=== PATIENT | female | born 1995 | race Caucasian/White ===

== ENCOUNTER 2019-04-08 22:31 | Observation (INO) | payer MEDICAID ==
[2019-04-08] MEDS ORDERED: Ondansetron 4 MG/2 ML SDV IVPUSH ONE (23:08)
[2019-04-09 00:01] LABS: BLOOD UREA NITROGEN,BUN 10 mg/dL (7.0-18.0); CARBON DIOXIDE,CO2 24.6 mmol/L (21.0-32.0); CHLORIDE,CL 103 mmol/L (98-107); GLUCOSE RANDOM 117 mg/dL (74-106); LIPASE 96 U/L (73-393); POTASSIUM,K 3.5 mmol/L (3.5-5.1); SODIUM,NA 139 mmol/L (136-145)
[2019-04-09] MEDS ORDERED: Morphine 4 MG/ML Syringe IVPUSH ONE (01:43)
[2019-04-09] MEDS ORDERED: Iopamidol 755 Mg/ML 100 ML Bottle IVPUSH ONE (02:21)
--- NOTE | 2019-04-09 02:59 | CT ---
CLINICAL INFORMATION: 24-year-old with abdominal pain and leukocytosis. TECHNIQUE: Contrast-enhanced CT of the abdomen and pelvis was obtained. Coronal and sagittal reformatted images were obtained. Contrast: 100 mL of Isovue 370 intravenous contrast was injected uneventfully prior to image acquisition. Radiation Dose Estimate (Total Exam DLP): 541.8 mGy-cm. COMPARISON: None available. FINDINGS: Lower Chest: Lung bases: Unremarkable. Heart/Pericardium: Unremarkable. Abdomen/Pelvis: Liver: Unremarkable. Gallbladder: Unremarkable. Spleen: Unremarkable. Adrenal glands: Unremarkable. Kidneys: Unremarkable. Pancreas: Unremarkable. Lymph nodes: Mildly prominent mesenteric lymph nodes most pronounced in the right lower quadrant, reactive in nature. Bowel: Fluid filled dilated thick-walled appendix measuring up to 1 cm with periappendiceal fat stranding consistent with acute appendicitis. No evidence for perforation or abscess. Mildly prominent diffuse small bowel distention likely representing an ileus. Urinary bladder: Grossly unremarkable. Reproductive structures: Unremarkable for patient age. 1.3 cm nabothian cyst. Ovaries demonstrate normal appearing follicles. No abdominal/pelvis ascites or free intraperitoneal air. Musculoskeletal: : Visualized osseous structures are preserved. IMPRESSION: 1. Fluid-filled, dilated, thick-walled appendix measuring up to 1 cm in the right lower quadrant with surrounding fat stranding consistent with acute appendicitis. No evidence for perforation or abscess. 2. Mildly prominent small bowel loops likely reflecting a reactive ileus. Please note that all CT scans at this facility use dose modulation, iterative reconstruction, and/or weight-based dosing when appropriate to reduce radiation dose to as low as reasonably achievable. Dictated by Andre Mckeon MD @ Apr 09 2019 11:59AM Signed by Dr. Andre Mckeon @ Apr 09 2019 12:05PM
[2019-04-09] MEDS ORDERED: Piperacillin/Tazobactam 3.375 GM in Sodium Chloride 0.9% 50 ML IV ONE (03:46)
[2019-04-09] MEDS ORDERED: Nicotine 14 MG/24 Hr Patch TRDERM ONE (03:57)
[2019-04-09] MEDS ORDERED: Sodium Chloride 0.9% 1,000 ML IV SCH (04:15)
--- NOTE | 2019-04-09 04:28 | EDM.PDOC ---
ED HPI GENERAL MEDICAL PROBLEM - General Chief Complaint: Abdominal Pain Stated Complaint: ABDOMINAL PAIN Time Seen by Provider: 04/08/19 23:04 Source of Information: Reports: Patient - History of Present Illness INITIAL COMMENTS - FREE TEXT/NARRATIVE: Pt with no reported pmh presents with 1 day of abdominal pain begining higher and moving lower. Pt began vomiting tonight and presents to the ed. No fever or any other symptoms. Upper Abdomen Pain Score (Numeric/FACES): 9 - Related Data Allergies Allergy/AdvReac Type Severity Reaction Status Date / Time No Known Allergies Allergy Verified 04/08/19 22:55 Home Meds: Home Meds . 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: None Musculoskeletal History: Reports: None Neurological History: Reports: Head Trauma Psychiatric History: Reports: Depression, PTSD Endocrine/Metabolic History: Reports: None Hematologic History: Reports: None Immunologic History: Reports: None Oncologic (Cancer) History: Reports: None Dermatologic History: Reports: None - Infectious Disease History Infectious Disease History: Reports: Chicken Pox - Past Surgical History Head Surgeries/Procedures: Reports: None HEENT Surgical History: Reports: Tonsillectomy Social & Family History - Tobacco Use Smoking Status *Q: Current Every Day Smoker Years of Tobacco use: 7 Packs/Tins Daily: 0.5 - Recreational Drug Use Recreational Drug Use: Yes Drug Use in Last 12 Months: Yes Recreational Drug Type: Reports: Marijuana/Hashish Recreational Drug Use Frequency: Daily ED ROS GENERAL - Review of Systems Review Of Systems: See Below Constitutional: Reports: No Symptoms HEENT: Reports: No Symptoms Respiratory: Reports: No Symptoms Cardiovascular: Reports: No Symptoms GI/Abdominal: Reports: Abdominal Pain, Anorexia, Nausea, Vomiting : Reports: No Symptoms Skin: Reports: No Symptoms ED EXAM, GI/ABD - Physical Exam Exam: See Below General Appearance: Alert, No Apparent Distress Head: Atraumatic, Normocephalic Neck: Normal Inspection Respiratory/Chest: Lungs Clear, Normal Breath Sounds Cardiovascular: Regular Rate, Rhythm, No Murmur GI/Abdominal Exam: Soft, No Distention, Rebound, Tender. No: Guarding, Rigid Back Exam: Normal Inspection Extremities: Normal Inspection Neurological: Alert, Oriented, Normal Cognition Skin Exam: Warm, Dry, Intact Course - Vital Signs Last Recorded V/S: Last Vital Signs Temp 97.9 F 04/09/19 03:52 Pulse 76 04/09/19 03:52 Resp 16 04/09/19 03:52 BP 111/62 04/09/19 03:52 Pulse Ox 97 04/09/19 03:52 - Orders/Labs/Meds Orders: Active Orders 24 hr Category Date Time Status Admission Status [Patient Status] [ADT] Stat ADT 04/09/19 04:06 Active Antiembolic Devices [RC] PER UNIT ROUTINE Care 04/09/19 04:09 Active NPO [Nothing Per Oral Diet] [DIET] Diet 04/09/19 Breakfast Active CULTURE BLOOD [BC] Stat Lab 04/09/19 03:46 Ordered CULTURE BLOOD [BC] Stat Lab 04/09/19 03:50 Received HYDROmorphone [Dilaudid] Med 04/09/19 04:07 Active 0.5 mg IVPUSH Q1H PRN Lactated Ringers [Ringers, Lactated] 1,000 ml Med 04/09/19 04:15 Active IV ASDIRECTED Ondansetron [Zofran] Med 04/09/19 04:08 Active 4 mg IVPUSH Q6H PRN Piperacillin/Tazobactam [Piperacil-Tazobact] 3.375 gm Med 04/09/19 06:15 Active Sodium Chloride 0.9% [Normal Saline] 50 ml IV Q6H Sodium Chloride 0.9% [Normal Saline] 1,000 ml Med 04/09/19 04:15 Active IV ASDIRECTED Blood Culture x2 Reflex Set [OM.PC] Stat Oth 04/09/19 03:46 Ordered SCD [Sequential Compression Device] [OM.PC] Stat Oth 04/09/19 04:09 Ordered Code Status [Resuscitation Status] Routine Resus Stat 04/09/19 04:20 Ordered Medication Orders Hydromorphone HCl (Dilaudid) 0.5 mg IVPUSH Q1H PRN PRN Reason: Pain (severe 7-10) Lactated Ringer's (Ringers, Lactated) 1,000 mls @ 125 mls/hr IV ASDIRECTED SHAYLA Piperacillin Sod/Tazobactam (Sod 3.375 gm/ Sodium Chloride) 50 mls @ 100 mls/ hr IV Q6H [facility] Sodium Chloride (Normal Saline) 1,000 mls @ 999 mls/hr IV ASDIRECTED [facility] Last Admin: 04/09/19 04:12 Dose: 999 mls/hr Ondansetron HCl (Zofran) 4 mg IVPUSH Q6H PRN PRN Reason: Nausea/Vomiting Labs: Laboratory Tests 04/08/19 04/08/19 04/08/19 Range/Units 23:25 23:25 23:26 WBC 18.64 H (4.0-11.0) K/uL RBC 4.37 (4.30-5.90) M/uL Hgb 13.8 (12.0-16.0) g/dL Hct 39.5 (36.0-46.0) % MCV 90.4 (80.0-98.0) fL MCH 31.6 (27.0-32.0) pg MCHC 34.9 (31.0-37.0) g/dL RDW Std Deviation 42.7 (28.0-62.0) fl RDW Coeff of Natalie 13 (11.0-15.0) % Plt Count 211 (150-400) K/uL MPV 11.10 (7.40-12.00) fL Neut % (Auto) 74.1 (48.0-80.0) % Lymph % (Auto) 18.7 (16.0-40.0) % [place] % (Auto) 6.4 (0.0-15.0) % Eos % (Auto) 0.6 (0.0-7.0) % Baso % (Auto) 0.2 (0.0-1.5) % Neut # (Auto) 13.8 H (1.4-5.7) K/uL Lymph # (Auto) 3.5 H (0.6-2.4) K/uL [place] # (Auto) 1.2 H (0.0-0.8) K/uL Eos # (Auto) 0.1 (0.0-0.7) K/uL Baso # (Auto) 0.0 (0.0-0.1) K/uL Nucleated RBC % 0.0 /100WBC Nucleated RBCs # 0 K/uL Sodium (136-145) mmol/L Potassium (3.5-5.1) mmol/L Chloride (98-107) mmol/L Carbon Dioxide (21.0-32.0) mmol/L BUN (7.0-18.0) mg/dL Creatinine (0.6-1.0) mg/dL Est Cr Clr Drug Dosing mL/min Estimated GFR (MDRD) ml/min Glucose (74-106) mg/dL Calcium (8.5-10.1) mg/dL Total Bilirubin (0.2-1.0) mg/dL AST (15-37) IU/L ALT (14-63) IU/L Alkaline Phosphatase (46-116) U/L Total Protein (6.4-8.2) g/dL Albumin (3.4-5.0) g/dL Globulin (2.6-4.0) g/dL Albumin/Globulin Ratio (0.9-1.6) Lipase (73-393) U/L Urine Color YELLOW Urine Appearance CLEAR Urine pH 6.0 (5.0-8.0) Ur Specific [place] 1.020 (1.001-1.035) Urine Protein NEGATIVE (NEGATIVE) mg/dL Urine Glucose (UA) NEGATIVE (NEGATIVE) mg/dL Urine Ketones 40 H (NEGATIVE) mg/dL Urine Occult Blood NEGATIVE (NEGATIVE) Urine Nitrite NEGATIVE (NEGATIVE) Urine Bilirubin NEGATIVE (NEGATIVE) Urine Urobilinogen 0.2 (<2.0) EU/dL Ur Leukocyte Esterase SMALL H (NEGATIVE) Urine RBC 0-1 (0-2/HPF) Urine WBC 1-2 (0-5/HPF) Ur Epithelial Cells OCCASIONAL (NONE-FEW) Urine Bacteria RARE (NEGATIVE) Urine HCG, Qual NEGATIVE (NEGATIVE) 04/08/19 Range/Units 23:26 WBC (4.0-11.0) K/uL RBC (4.30-5.90) M/uL Hgb (12.0-16.0) g/dL Hct (36.0-46.0) % MCV (80.0-98.0) fL MCH (27.0-32.0) pg MCHC (31.0-37.0) g/dL RDW Std Deviation (28.0-62.0) fl RDW Coeff of [place] (11.0-15.0) % Plt Count (150-400) K/uL MPV (7.40-12.00) fL Neut % (Auto) (48.0-80.0) % Lymph % (Auto) (16.0-40.0) % [place] % (Auto) (0.0-15.0) % Eos % (Auto) (0.0-7.0) % Baso % (Auto) (0.0-1.5) % Neut # (Auto) (1.4-5.7) K/uL Lymph # (Auto) (0.6-2.4) K/uL [place] # (Auto) (0.0-0.8) K/uL Eos # (Auto) (0.0-0.7) K/uL Baso # (Auto) (0.0-0.1) K/uL Nucleated RBC % /100WBC Nucleated RBCs # K/uL Sodium 139 (136-145) mmol/L Potassium 3.5 (3.5-5.1) mmol/L Chloride 103 (98-107) mmol/L Carbon Dioxide 24.6 (21.0-32.0) mmol/L BUN 10 (7.0-18.0) mg/dL Creatinine 0.7 (0.6-1.0) mg/dL Est Cr Clr Drug Dosing 97.17 mL/min Estimated GFR (MDRD) > 60.0 ml/min Glucose 117 H (74-106) mg/dL Calcium 9.5 (8.5-10.1) mg/dL Total Bilirubin 0.3 (0.2-1.0) mg/dL AST 13 L (15-37) IU/L ALT 24 (14-63) IU/L Alkaline Phosphatase 25 L (46-116) U/L Total Protein 7.3 (6.4-8.2) g/dL Albumin 4.0 (3.4-5.0) g/dL Globulin 3.3 (2.6-4.0) g/dL Albumin/Globulin Ratio 1.2 (0.9-1.6) Lipase 96 (73-393) U/L Urine Color Urine Appearance Urine pH (5.0-8.0) Ur Specific [place] (1.001-1.035) Urine Protein (NEGATIVE) mg/dL Urine Glucose (UA) (NEGATIVE) mg/dL Urine Ketones (NEGATIVE) mg/dL Urine Occult Blood (NEGATIVE) Urine Nitrite (NEGATIVE) Urine Bilirubin (NEGATIVE) Urine Urobilinogen (<2.0) EU/dL Ur Leukocyte Esterase (NEGATIVE) Urine RBC (0-2/HPF) Urine WBC (0-5/HPF) Ur Epithelial Cells (NONE-FEW) Urine Bacteria (NEGATIVE) Urine HCG, Qual (NEGATIVE) Meds: Medications Generic Name Dose Route Start Last Admin Trade Name Matty PRN Reason Stop Dose Admin Hydromorphone HCl 0.5 mg 04/09/19 04:07 Dilaudid IVPUSH Q1H PRN Pain (severe 7-10) Lactated Ringer's 1,000 mls @ 125 mls/hr 04/09/19 04:15 Ringers, Lactated IV ASDIRECTED SHAYLA Piperacillin Sod/Tazobactam 50 mls @ 100 mls/hr 04/09/19 06:15 Sod 3.375 gm/ Sodium Chloride IV Q6H SHAYLA Sodium Chloride 1,000 mls @ 999 mls/hr 04/09/19 04:15 04/09/19 04:12 Normal Saline IV 999 mls/hr ASDIRECTED SHAYLA Administration Ondansetron HCl 4 mg 04/09/19 04:08 Zofran IVPUSH Q6H PRN Nausea/Vomiting Discontinued Medications Generic Name Dose Route Start Last Admin Trade Name [place] PRN Reason Stop Dose Admin Piperacillin Sod/Tazobactam 50 mls @ 100 mls/hr 04/09/19 03:46 04/09/19 04:14 Sod 3.375 gm/ Sodium Chloride IV 04/09/19 04:15 100 mls/hr ONETIME ONE Administration Iopamidol 100 ml 04/09/19 02:21 04/09/19 02:22 Isovue-370 (76%) IVPUSH 04/09/19 02:22 100 ml ONETIME ONE Administration Morphine Sulfate 4 mg 04/09/19 01:43 04/09/19 01:58 Morphine IVPUSH 04/09/19 01:44 4 mg ONETIME ONE Administration Nicotine 14 mg 04/09/19 03:57 04/09/19 04:19 Habitrol TRDERM 04/09/19 03:58 14 mg ONETIME ONE Administration Ondansetron HCl 4 mg 04/08/19 23:08 04/08/19 23:33 Zofran IVPUSH 04/08/19 23:09 4 mg ONETIME ONE Administration - Re-Assessments/Exams Free Text/Narrative Re-Assessment/Exam: 04/09/19 04:27 CT shows Acute uncomplicated Appendicitis. Dr. Alba called and pt admitted and given zosyn. Assessment and plan discussed with patient. Departure - Departure Time of Disposition: 04:28 Disposition: Refer to Observation Condition: Good Clinical Impression: Appendicitis - Discharge Information *PRESCRIPTION DRUG MONITORING PROGRAM REVIEWED*: Not Applicable *COPY OF PRESCRIPTION DRUG MONITORING REPORT IN PATIENT PRABHA: Not Applicable Sepsis Event Note - Evaluation Sepsis Screening Result: No Definite Risk - Focused Exam Vital Signs: Vital Signs Temp Pulse Resp BP Pulse Ox 04/09/19 03:52 97.9 F 76 16 111/62 97 04/09/19 01:30 67 16 120/75 97 04/08/19 22:52 97.9 F 90 18 126/74 98 Date Exam was Performed: 04/09/19 Time Exam was Performed: 04:23 - My Orders Last 24 Hours: My Active Orders 04/09/19 03:46 CULTURE BLOOD [BC] Stat Blood Culture x2 Reflex Set [OM.PC] Stat 04/09/19 03:50 CULTURE BLOOD [BC] Stat 04/09/19 04:06 Admission Status [Patient Status] [ADT] Stat 04/09/19 04:15 Sodium Chloride 0.9% [Normal Saline] 1,000 ml IV ASDIRECTED - Assessment/Plan Last 24 Hours: My Active Orders 04/09/19 03:46 CULTURE BLOOD [BC] Stat Blood Culture x2 Reflex Set [OM.PC] Stat 04/09/19 03:50 CULTURE BLOOD [BC] Stat 04/09/19 04:06 Admission Status [Patient Status] [ADT] Stat 04/09/19 04:15 Sodium Chloride 0.9% [Normal Saline] 1,000 ml IV ASDIRECTED
[2019-04-09] MEDS: HYDROmorphone 2 MG/ML Syringe IVPUSH PRN ×4 (04:57→21:17)
[2019-04-09] MEDS: Lactated Ringers 1,000 ML IV SCH ×2 (04:57→18:40)
[2019-04-09] MEDS: Piperacillin/Tazobactam 3.375 GM in Sodium Chloride 0.9% 50 ML IV SCH ×3 (05:18→19:17)
--- NOTE | 2019-04-09 07:52 | PCM.PREANE ---
Preanesthetic Assessment - Anesthesia/Transfusion/Family Hx Anesthesia History: Prior Anesthesia Without Reaction Family History of Anesthesia Reaction: No - Physical Assessment NPO Status Date: 04/09/19 NPO Status Time: 00:05 Vital Signs: Last Vital Signs Temp 36.6 C 04/09/19 03:52 Pulse 76 04/09/19 03:52 Resp 16 04/09/19 03:52 BP 111/62 04/09/19 03:52 Pulse Ox 97 04/09/19 03:52 Height: 1.57 m Weight: 79.742 kg ASA Class: 1 - Lab Values: Laboratory Last Values WBC 18.64 K/uL (4.0-11.0) H 04/08/19 23: RBC 4.37 M/uL (4.30-5.90) 04/08/19 23: Hgb 13.8 g/dL (12.0-16.0) 04/08/19: Hct 39.5 % (36.0-46.0) 04/08/19: MCV 90.4 fL (80.0-98.0) 04/08/19: MCH 31.6 pg (27.0-32.0) 04/08/19: MCHC 34.9 g/dL (31.0-37.0) 04/08/19: RDW Std Deviation 42.7 fl (28.0-62.0) 04/08/19: RDW Coeff of Natalie 13 % (11.0-15.0) 04/08/19: Plt Count 211 K/uL (150-400) 04/08/19: MPV 11.10 fL (7.40-12.00) 04/08/19: Neut % (Auto) 74.1 % (48.0-80.0) 04/08/19: Lymph % (Auto) 18.7 % (16.0-40.0) 04/08/19: [place] % (Auto) 6.4 % (0.0-15.0) 04/08/19: Eos % (Auto) 0.6 % (0.0-7.0) 04/08/19: Baso % (Auto) 0.2 % (0.0-1.5) 04/08/19 23: Neut # (Auto) 13.8 K/uL (1.4-5.7) H 04/08/19 23: Lymph # (Auto) 3.5 K/uL (0.6-2.4) H 04/08/19 23: [place] # (Auto) 1.2 K/uL (0.0-0.8) H 04/08/19 23: Eos # (Auto) 0.1 K/uL (0.0-0.7) 04/08/19 23: Baso # (Auto) 0.0 K/uL (0.0-0.1) 04/08/19 23: Nucleated RBC % 0.0 /100WBC 04/08/19: Nucleated RBCs # 0 K/uL 04/08/19 23: Sodium 139 mmol/L (136-145) 04/08/19 23: Potassium 3.5 mmol/L (3.5-5.1) 04/08/19: Chloride 103 mmol/L (98-107) 04/08/19: Carbon Dioxide 24.6 mmol/L (21.0-32.0) 04/08/19: BUN 10 mg/dL (7.0-18.0) 04/08/19: Creatinine 0.7 mg/dL (0.6-1.0) 04/08/19: Est Cr Clr Drug Dosing 97.17 mL/min 04/08/19 23: Estimated GFR (MDRD) > 60.0 ml/min 04/08/19: Glucose 117 mg/dL (74-106) H 04/08/19: Calcium 9.5 mg/dL (8.5-10.1) 04/08/19: Total Bilirubin 0.3 mg/dL (0.2-1.0) 04/08/19: AST 13 IU/L (15-37) L 04/08/19: ALT 24 IU/L (14-63) 04/08/19: Alkaline Phosphatase 25 U/L (46-116) L 04/08/19: Total Protein 7.3 g/dL (6.4-8.2) 04/08/19 23: Albumin 4.0 g/dL (3.4-5.0) 04/08/19 23: Globulin 3.3 g/dL (2.6-4.0) 04/08/19 23: Albumin/Globulin Ratio 1.2 (0.9-1.6) 04/08/19 23: Lipase 96 U/L (73-393) 04/08/19 23: Urine Color YELLOW 04/08/19 23: Urine Appearance CLEAR 04/08/19 23: Urine pH 6.0 (5.0-8.0) 04/08/19 23:25 Ur Specific [place] 1.020 (1.001-1.035) 04/08/19 23: Urine Protein NEGATIVE mg/dL (NEGATIVE) 04/08/19 23: Urine Glucose (UA) NEGATIVE mg/dL (NEGATIVE) 04/08/19 23: Urine Ketones 40 mg/dL (NEGATIVE) H 04/08/19 23:25 Urine Occult Blood NEGATIVE (NEGATIVE) 04/08/19 23:25 Urine Nitrite NEGATIVE (NEGATIVE) 04/08/19 23: Urine Bilirubin NEGATIVE (NEGATIVE) 04/08/19 23: Urine Urobilinogen 0.2 EU/dL (<2.0) 04/08/19 23:25 Ur Leukocyte Esterase SMALL (NEGATIVE) H 04/08/19 23:25 Urine RBC 0-1 (0-2/HPF) 04/08/19 23:25 Urine WBC 1-2 (0-5/HPF) 04/08/19 23:25 Ur Epithelial Cells OCCASIONAL (NONE-FEW) 04/08/19 23:25 Urine Bacteria RARE (NEGATIVE) 04/08/19 23: Urine HCG, Qual NEGATIVE (NEGATIVE) 04/08/19 23:25 - Allergies Allergies/Adverse Reactions: Allergies Allergy/AdvReac Type Severity Reaction Status Date / Time No Known Allergies Allergy Verified 04/09/19 05:27 - Acknowledgements Anesthesia Type Planned: General Anesthesia Pt an Appropriate Candidate for the Planned Anesthesia: Yes Alternatives and Risks of Anesthesia Discussed w Pt/Guardian: Yes Pt/Guardian Understands and Agrees with Anesthesia Plan: Yes PreAnesthesia Questionnaire HEENT History: Reports: None Cardiovascular History: Reports: None Respiratory History: Reports: None Gastrointestinal History: Reports: None Genitourinary History: Reports: None 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 Musculoskeletal History: Reports: None Neurological History: Reports: Head Trauma Psychiatric History: Reports: Depression, PTSD Endocrine/Metabolic History: Reports: None Hematologic History: Reports: None Immunologic History: Reports: None Oncologic (Cancer) History: Reports: None Dermatologic History: Reports: None - Infectious Disease History Infectious Disease History: Reports: Chicken Pox - Past Surgical History Head Surgeries/Procedures: Reports: None HEENT Surgical History: Reports: Tonsillectomy - SUBSTANCE USE Smoking Status *Q: Current Every Day Smoker Recreational Drug Use History: Yes Recreational Drug Type: Reports: Marijuana/Hashish - HOME MEDS Home Medications: Home Meds . [No Known Home Meds] 04/08/19 [History] - CURRENT (IN HOUSE) MEDS Current Meds: Current Medications Hydromorphone HCl (Dilaudid) 0.5 mg IVPUSH Q1H PRN PRN Reason: Pain (severe 7-10) Last Admin: 04/09/19 07:09 Dose: 0.5 mg Lactated Ringer's (Ringers, Lactated) 1,000 mls @ 125 mls/hr IV ASDIRECTED [facility] Last Admin: 04/09/19 04:57 Dose: 125 mls/hr Piperacillin Sod/Tazobactam (Sod 3.375 gm/ Sodium Chloride) 50 mls @ 100 mls/ hr IV Q6H [facility] Last Admin: 04/09/19 05:18 Dose: Not Given Sodium Chloride (Normal Saline) 1,000 mls @ 999 mls/hr IV ASDIRECTED [facility] Last Admin: 04/09/19 04:12 Dose: 999 mls/hr Ondansetron HCl (Zofran) 4 mg IVPUSH Q6H PRN PRN Reason: Nausea/Vomiting Discontinued Medications Piperacillin Sod/Tazobactam (Sod 3.375 gm/ Sodium Chloride) 50 mls @ 100 mls/ hr IV ONETIME ONE Stop: 04/09/19 04:15 Last Admin: 04/09/19 04:14 Dose: 100 mls/hr Iopamidol (Isovue-370 (76%)) 100 ml IVPUSH ONETIME ONE Stop: 04/09/19 02:22 Last Admin: 04/09/19 02:22 Dose: 100 ml Morphine Sulfate (Morphine) 4 mg IVPUSH ONETIME ONE Stop: 04/09/19 01:44 Last Admin: 04/09/19 01:58 Dose: 4 mg Nicotine (Habitrol) 14 mg TRDERM ONETIME ONE Stop: 04/09/19 03:58 Last Admin: 04/09/19 04:19 Dose: 14 mg Ondansetron HCl (Zofran) 4 mg IVPUSH ONETIME ONE Stop: 04/08/19 23:09 Last Admin: 04/08/19 23:33 Dose: 4 mg
[2019-04-09] MEDS ORDERED: fentaNYL 100 MCG/2 ML SDV IVPUSH PRN (07:53)
[2019-04-09] MEDS ORDERED: Sugammadex Sodium 200 MG/2 ML VIAL ONE (08:27)
--- NOTE | 2019-04-09 09:18 | PCM.HP.2 ---
H&P History of Present Illness - General Date of Service: 04/09/19 Admit Problem/Dx: Admission Diagnosis/Problem Admission Diagnosis/Problem Appendicitis Source of Information: Patient History Limitations: Reports: No Limitations - History of Present Illness Initial Comments - Free Text/Narative: Patient is a 24 year old female who presents with acute appendicitis. She developed abdominal pain 2 nights ago. She figured it was just something she ate or a viral GI bug. She went to work yesterday but the abdominal pain got worse. She then started vomiting. She presented to the emergency room early this morning. Her vital signs are stable. She had a white count of 18,000 with a left shift. CT scan of the abdomen pelvis showed nonperforated acute appendicitis. Upper Abdomen Pain Score (Numeric/FACES): 5 - Related Data Allergies/Adverse Reactions: Allergies Allergy/AdvReac Type Severity Reaction Status Date / Time No Known Allergies Allergy Verified 04/09/19 05:27 Home Medications: Home Meds . [No Known Home Meds] 04/08/19 [History] Past Medical History HEENT History: Reports: None Cardiovascular History: Reports: None Respiratory History: Reports: None Gastrointestinal History: Reports: None Genitourinary History: Reports: None [employer] History: Reports: None Musculoskeletal History: Reports: None Neurological History: Reports: Head Trauma Psychiatric History: Reports: Depression, PTSD Endocrine/Metabolic History: Reports: None Hematologic History: Reports: None Immunologic History: Reports: None Oncologic (Cancer) History: Reports: None Dermatologic History: Reports: None - Infectious Disease History Infectious Disease History: Reports: Chicken Pox - Past Surgical History Head Surgeries/Procedures: Reports: None HEENT Surgical History: Reports: Tonsillectomy Social & Family History - Tobacco Use Smoking Status *Q: Current Every Day Smoker Years of Tobacco use: 7 Packs/Tins Daily: 0.5 - Recreational Drug Use Recreational Drug Use: Yes Drug Use in Last 12 Months: Yes Recreational Drug Type: Reports: Marijuana/Hashish Recreational Drug Use Frequency: Daily H&P Review of Systems - Review of Systems: Review Of Systems: Comprehensive ROS is negative, except as noted in HPI. Exam - Exam Exam: See Below - Vital Signs Vital Signs: Last Vital Signs Temp 36.6 C 04/09/19 08:00 Pulse 80 04/09/19 08:00 Resp 16 04/09/19 08:00 BP 112/69 01/24/20 08:00 Pulse Ox 97 04/09/19 03:52 Weight: 79.742 kg - Exam General: Alert, Oriented, Cooperative HEENT: Conjunctiva Clear, Mucosa Moist & [place], Posterior Pharynx Clear Neck: Supple, Trachea Midline Lungs: Clear to Auscultation, Normal Respiratory Effort Cardiovascular: Regular Rate, Regular Rhythm GI/Abdominal Exam: Soft, Non-Tender, No Distention, Tender (RLQ pain) - Patient Data Lab Results Last 24 hrs: Laboratory Results - last 24 hr 04/08/19 04/08/19 04/08/19 Range/Units 23:25 23:25 23:26 WBC 18.64 H (4.0-11.0) K/uL RBC 4.37 (4.30-5.90) M/uL Hgb 13.8 (12.0-16.0) g/dL Hct 39.5 (36.0-46.0) % MCV 90.4 (80.0-98.0) fL MCH 31.6 (27.0-32.0) pg MCHC 34.9 (31.0-37.0) g/dL RDW Std Deviation 42.7 (28.0-62.0) fl RDW Coeff of Natalie 13 (11.0-15.0) % Plt Count 211 (150-400) K/uL MPV 11.10 (7.40-12.00) fL Neut % (Auto) 74.1 (48.0-80.0) % Lymph % (Auto) 18.7 (16.0-40.0) % [place] % (Auto) 6.4 (0.0-15.0) % Eos % (Auto) 0.6 (0.0-7.0) % Baso % (Auto) 0.2 (0.0-1.5) % Neut # (Auto) 13.8 H (1.4-5.7) K/uL Lymph # (Auto) 3.5 H (0.6-2.4) K/uL [place] # (Auto) 1.2 H (0.0-0.8) K/uL Eos # (Auto) 0.1 (0.0-0.7) K/uL Baso # (Auto) 0.0 (0.0-0.1) K/uL Nucleated RBC % 0.0 /100WBC Nucleated RBCs # 0 K/uL Sodium (136-145) mmol/L Potassium (3.5-5.1) mmol/L Chloride (98-107) mmol/L Carbon Dioxide (21.0-32.0) mmol/L BUN (7.0-18.0) mg/dL Creatinine (0.6-1.0) mg/dL Est Cr Clr Drug Dosing mL/min Estimated GFR (MDRD) ml/min Glucose (74-106) mg/dL Calcium (8.5-10.1) mg/dL Total Bilirubin (0.2-1.0) mg/dL AST (15-37) IU/L ALT (14-63) IU/L Alkaline Phosphatase (46-116) U/L Total Protein (6.4-8.2) g/dL Albumin (3.4-5.0) g/dL Globulin (2.6-4.0) g/dL Albumin/Globulin Ratio (0.9-1.6) Lipase (73-393) U/L Urine Color YELLOW Urine Appearance CLEAR Urine pH 6.0 (5.0-8.0) Ur Specific Lamar 1.020 (1.001-1.035) Urine Protein NEGATIVE (NEGATIVE) mg/dL Urine Glucose (UA) NEGATIVE (NEGATIVE) mg/dL Urine Ketones 40 H (NEGATIVE) mg/dL Urine Occult Blood NEGATIVE (NEGATIVE) Urine Nitrite NEGATIVE (NEGATIVE) Urine Bilirubin NEGATIVE (NEGATIVE) Urine Urobilinogen 0.2 (<2.0) EU/dL Ur Leukocyte Esterase SMALL H (NEGATIVE) Urine RBC 0-1 (0-2/HPF) Urine WBC 1-2 (0-5/HPF) Ur Epithelial Cells OCCASIONAL (NONE-FEW) Urine Bacteria RARE (NEGATIVE) Urine HCG, Qual NEGATIVE (NEGATIVE) 04/08/19 Range/Units 23:26 WBC (4.0-11.0) K/uL RBC (4.30-5.90) M/uL Hgb (12.0-16.0) g/dL Hct (36.0-46.0) % MCV (80.0-98.0) fL MCH (27.0-32.0) pg MCHC (31.0-37.0) g/dL RDW Std Deviation (28.0-62.0) fl RDW Coeff of Natalie (11.0-15.0) % Plt Count (150-400) K/uL MPV (7.40-12.00) fL Neut % (Auto) (48.0-80.0) % Lymph % (Auto) (16.0-40.0) % Benton % (Auto) (0.0-15.0) % Eos % (Auto) (0.0-7.0) % Baso % (Auto) (0.0-1.5) % Neut # (Auto) (1.4-5.7) K/uL Lymph # (Auto) (0.6-2.4) K/uL Benton # (Auto) (0.0-0.8) K/uL Eos # (Auto) (0.0-0.7) K/uL Baso # (Auto) (0.0-0.1) K/uL Nucleated RBC % /100WBC Nucleated RBCs # K/uL Sodium 139 (136-145) mmol/L Potassium 3.5 (3.5-5.1) mmol/L Chloride 103 (98-107) mmol/L Carbon Dioxide 24.6 (21.0-32.0) mmol/L BUN 10 (7.0-18.0) mg/dL Creatinine 0.7 (0.6-1.0) mg/dL Est Cr Clr Drug Dosing 97.17 mL/min Estimated GFR (MDRD) > 60.0 ml/min Glucose 117 H (74-106) mg/dL Calcium 9.5 (8.5-10.1) mg/dL Total Bilirubin 0.3 (0.2-1.0) mg/dL AST 13 L (15-37) IU/L ALT 24 (14-63) IU/L Alkaline Phosphatase 25 L (46-116) U/L Total Protein 7.3 (6.4-8.2) g/dL Albumin 4.0 (3.4-5.0) g/dL Globulin 3.3 (2.6-4.0) g/dL Albumin/Globulin Ratio 1.2 (0.9-1.6) Lipase 96 (73-393) U/L Urine Color Urine Appearance Urine pH (5.0-8.0) Ur Specific Lamar (1.001-1.035) Urine Protein (NEGATIVE) mg/dL Urine Glucose (UA) (NEGATIVE) mg/dL Urine Ketones (NEGATIVE) mg/dL Urine Occult Blood (NEGATIVE) Urine Nitrite (NEGATIVE) Urine Bilirubin (NEGATIVE) Urine Urobilinogen (<2.0) EU/dL Ur Leukocyte Esterase (NEGATIVE) Urine RBC (0-2/HPF) Urine WBC (0-5/HPF) Ur Epithelial Cells (NONE-FEW) Urine Bacteria (NEGATIVE) Urine HCG, Qual (NEGATIVE) Result Diagrams: 04/08/19 23:26 04/08/19 23:26 Sepsis Event Note - Evaluation Sepsis Screening Result: No Definite Risk - Focused Exam Vital Signs: Vital Signs Temp Pulse Resp BP Pulse Ox 04/09/19 08:00 36.6 C 80 16 112/69 04/09/19 03:52 36.6 C 76 16 111/62 97 04/09/19 01:30 67 16 120/75 97 04/08/19 22:52 36.6 C 90 18 126/74 98 Date Exam was Performed: 04/09/19 Time Exam was Performed: 09:13 - Problem List (1) Appendicitis SNOMED Code(s): 74145355 ICD Code: K37 - UNSPECIFIED APPENDICITIS Status: Acute Current Visit: Yes Problem List Initiated/Reviewed/Updated: Yes Orders Last 24hrs: Active Orders 24 hr Category Date Time Status Admission Status [Patient Status] [ADT] Stat ADT 04/09/19 04:06 Active Antiembolic Devices [RC] PER UNIT ROUTINE Care 04/09/19 04:09 Active NPO [Nothing Per Oral Diet] [DIET] Diet 04/09/19 Breakfast Active CULTURE BLOOD [BC] Stat Lab 04/09/19 03:50 Received CULTURE BLOOD [BC] Stat Lab 04/09/19 04:00 Received HYDROmorphone [Dilaudid] Med 04/09/19 04:07 Active 0.5 mg IVPUSH Q1H PRN Lactated Ringers [Ringers, Lactated] 1,000 ml Med 04/09/19 04:15 Active IV ASDIRECTED Ondansetron [Zofran] Med 04/09/19 04:08 Active 4 mg IVPUSH Q6H PRN Piperacillin/Tazobactam [Piperacil-Tazobact] 3.375 gm Med 04/09/19 06:15 Active Sodium Chloride 0.9% [Normal Saline] 50 ml IV Q6H Sodium Chloride 0.9% [Normal Saline] 1,000 ml Med 04/09/19 04:15 Active IV ASDIRECTED fentaNYL [Sublimaze] Med 04/09/19 07:53 Active 50 mcg IVPUSH Q5M PRN Blood Culture x2 Reflex Set [OM.PC] Stat Ot 04/09/19 03:46 Ordered SCD [Sequential Compression Device] [OM.PC] Stat Ot 04/09/19 04:09 Ordered Code Status [Resuscitation Status] Routine Resus Stat 04/09/19 04:20 Ordered Medication Orders Fentanyl (Sublimaze) 50 mcg IVPUSH Q5M PRN PRN Reason: Pain Hydromorphone HCl (Dilaudid) 0.5 mg IVPUSH Q1H PRN PRN Reason: Pain (severe 7-10) Last Admin: 04/09/19 07:09 Dose: 0.5 mg Admin: 04/09/19 04:57 Dose: 0.5 mg Lactated Ringer's (Ringers, Lactated) 1,000 mls @ 125 mls/hr IV ASDIRECTED [facility] Last Admin: 04/09/19 04:57 Dose: 125 mls/hr Piperacillin Sod/Tazobactam (Sod 3.375 gm/ Sodium Chloride) 50 mls @ 100 mls/ hr IV Q6H [facility] Last Admin: 04/09/19 05:18 Dose: Sodium Chloride (Normal Saline) 1,000 mls @ 999 mls/hr IV ASDIRECTED [facility] Last Admin: 04/09/19 04:12 Dose: 999 mls/hr Ondansetron HCl (Zofran) 4 mg IVPUSH Q6H PRN PRN Reason: Nausea/Vomiting Assessment/Plan Comment:: The patient and I discussed the pathophysiology of acute appendicitis. I explained the need for an appendectomy. I will attempt it laparoscopically but should I be unable to perform safely we will convert to open. I explained the expected perioperative course and risks including bleeding infection or damage to surrounding structures. She verbalized understanding and wishes to proceed.
[2019-04-09] MEDS: Ondansetron 4 MG/2 ML SDV IVPUSH PRN ×2 (09:20→13:30)
[2019-04-09] MEDS ORDERED: Midazolam 1 MG/ML 2 ML SDV ONE (09:50)
[2019-04-09] MEDS ORDERED: Propofol 200 MG/20 ML SDV ONE (09:50)
[2019-04-09] MEDS ORDERED: fentaNYL 250 MCG/5 ML SDV ONE (09:50)
[2019-04-09] MEDS ORDERED: Lidocaine 2% 5 ML SDV ONE (09:54)
[2019-04-09] MEDS ORDERED: Rocuronium 100 MG/10 ML Syringe ONE (09:54)
[2019-04-09] MEDS ORDERED: Ketorolac 30 MG/ML SDV ONE (09:54)
[2019-04-09] MEDS ORDERED: Ondansetron 4 MG/2 ML SDV ONE (09:54)
[2019-04-09] MEDS ORDERED: Glycopyrrolate 0.2 MG/ML SDV ONE (09:54)
[2019-04-09] MEDS ORDERED: Phenylephrine/Normal Saline 100 MCG/ML 10 ML Syringe ONE (11:12)
[2019-04-09] MEDS ORDERED: Bupivacaine 0.5% 10 ML SDV ONE (12:06)
[2019-04-09] MEDS ORDERED: fentaNYL 100 MCG/2 ML SDV ONE (12:34)
[2019-04-09] MEDS ORDERED: diphenhydrAMINE 50 MG/ML SDV IVPUSH PRN (15:15)
[2019-04-09] MEDS ORDERED: Sodium Chloride 0.9% 2.5 ML Syringe FLUSH PRN (15:15)
[2019-04-09] MEDS ORDERED: Promethazine 25 MG/ML SDV IM PRN (15:15)
[2019-04-09] MEDS ORDERED: Sodium Chloride 0.9% 10 ML Syringe FLUSH PRN (15:15)
[2019-04-09] MEDS ORDERED: Sodium Chloride 0.9% 10 ML SDV IV PRN (15:15)
--- NOTE | 2019-04-09 15:15 | PCM.OPNOTE ---
- General Post-Op/Procedure Note Date of Surgery/Procedure: 04/09/19 Operative Procedure(s): Laparoscopic appendectomy Findings: Grossly inflamed and enlarged appendix with no sign of perforation Pre Op Diagnosis: Appendicitis Post-Op Diagnosis: same Anesthesia Technique: General ET Tube Primary Surgeon: Lisette Alba Fluid Replacement, Intraop: 1,200 Output, Urine Amount: 65 EBL in mLs: 25 Condition: Fair
--- NOTE | 2019-04-09 15:54 | PCM.POSTAN ---
POST ANESTHESIA ASSESSMENT - MENTAL STATUS Mental Status: Alert, Oriented - VITAL SIGNS Vital Signs: Last Vital Signs Temp 37.1 C 04/09/19 15:06 Pulse 74 04/09/19 15:46 Resp 16 04/09/19 15:46 BP 98/58 L 04/09/19 15:46 Pulse Ox 91 L 04/09/19 15:46 - RESPIRATORY Respiratory Status: Respiratory Rate WNL, Airway Patent, O2 Saturation Stable - CARDIOVASCULAR CV Status: Pulse Rate WNL, Blood Pressure Stable - GASTROINTESTINAL GI Status: No Symptoms - PAIN Pain Score: 3 - POST OP HYDRATION Hydration Status: Adequate & Stable - OBSERVATIONS Free Text/Narrative:: No Anesthesia related complications or concerns noted.
[2019-04-09] MEDS ORDERED: Lactated Ringers 1,000 ML IV SCH (16:30)
--- NOTE | 2019-04-09 16:36 | PCM.SN ---
- Free Text/Narrative Note: Patient was brought to the floor from PACU. She had Fentanyl at 15:41 in PACU. She was lethargic and pale. Her first BP was 70/30. She was not tachycardic. I was called. I ordered a 1L bolus of LR as the patient only received 1200ml during the case. By the time I arrived, her BP had improved to 91/50. She was more awake and was able to answer questions for me. Her HR was 65. She complained of pain along the RLQ. I palpated the area and there was only mild tenderness. She was more tender along her incision sites on the right. There was no distension, guarding or rebound. I ordered stat CBC, CMP, and type and screen. Will follow up on these labs, but likely patient had a low BP secondary to slight hypovolemia, pain meds, and vagal response to moving from one bed to the other. Will keep overnight and switch to observation.
[2019-04-09 17:15] LABS: BLOOD UREA NITROGEN,BUN 8 mg/dL (7.0-18.0); CARBON DIOXIDE,CO2 22.1 mmol/L (21.0-32.0); CHLORIDE,CL 107 mmol/L (98-107); GLUCOSE RANDOM 113 mg/dL (74-106); POTASSIUM,K 3.7 mmol/L (3.5-5.1); SODIUM,NA 139 mmol/L (136-145)
[2019-04-09] MEDS ORDERED: Lactated Ringers 1,000 ML IV ONE (17:56)
--- NOTE | 2019-04-09 17:56 | OR ---
SURGEON: LISETTE ALBA MD DATE OF PROCEDURE: 04/09/2019 PREOPERATIVE DIAGNOSIS: Acute appendicitis. POSTOPERATIVE DIAGNOSIS: Acute appendicitis. PROCEDURE PERFORMED: Laparoscopic appendectomy. PRIMARY SURGEON: Lisette Alba MD. ANESTHESIA: General endotracheal anesthesia. FLUIDS: 1200 mL of crystalloid. ESTIMATED BLOOD LOSS: 25 mL. URINE OUTPUT: 65 mL. FINDINGS: Grossly enlarged and inflamed appendix. No evidence of perforation. COMPLICATIONS: None. INDICATIONS: The patient is a 24-year-old female who presents with acute appendicitis. I consented her for a laparoscopic, possible open, appendectomy. I explained the expected perioperative course as well as the risks including bleeding, infection, or damage to surrounding structures. The patient verbalized understanding and wishes to proceed. PROCEDURE IN DETAIL: The patient was brought into the OR and placed on the OR table in supine position. A time-out was completed verifying the patient's name, age, date of , allergies, and procedure to be performed. General endotracheal anesthesia was induced. The left arm was tucked to the patient's side and a Thomas catheter placed. The abdomen was prepped and draped in usual standard fashion. I anesthetized an area 2 fingerbreadths below the left subcostal margin in the midclavicular line with 0.5% Marcaine plain. An 11 blade was used to make an incision in this area. A 5 mm optical trocar was used to gain entry into the abdomen under direct visualization. All layers of the abdominal wall were visualized upon entry. The abdomen was insufflated and a 5 mm 30-degree scope inserted. I inspected the area underneath my initial trocar placement. No damage to surrounding structures was noted. A 5 mm trocar was placed under direct visualization just left and lateral to the umbilicus and another trocar was placed in the left lower quadrant under direct visualization. This was a 12 mm trocar. The patient was placed into Trendelenburg position and airplaned slightly to the left. I turned my attention to the right lower quadrant. The omentum was densely adhered to the underlying tissues. Using gentle blunt dissection with a Kittner, I was able to peel this back. I immediately identified a grossly inflamed and enlarged appendix. There was no evidence of any perforation. The appendiceal mesentery was densely thickened and inflamed and appeared to be lying in a more lateral position. I followed the appendix to the base of the cecum. The cecum had a couple of adhesions to it, but this did not impede any of my dissection. The base of the appendix was uninvolved in the gross inflammation. I decided to begin my dissection proximally. Using a [place] dissector, I created a window between the appendix and the appendiceal mesentery at the base. I then stapled and transected across the base of the appendix using an endoscopic stapling device and a 45 mm blue load of trinity. After doing this, I was then able to better expose my appendiceal mesentery. The Harmonic scalpel device was then used to take down the appendiceal mesentery in proximal to distal fashion. Despite the use of the Harmonic device, the dissection line proximally was oozy. Once I had freed the appendix and the appendiceal mesentery away from the surrounding structures, I placed the appendix into an Endo Catch bag and removed it through the 12 mm port site. I had to stretch my fascia at this using a hemostat given how large the appendix was. I was able to remove the appendix safely in the endocatch bag. The 12 mm trocar was placed back in the abdomen, and I inspected my field. I suctioned out as much of the blood and clot as I could. I then placed Surgicel over the cut edge of the appendiceal mesentery. There was no arterial bleeding seen, again just oozing. I then irrigated in the pelvis and suctioned this free. Any other areas of clot or fluid were then suctioned out. After about 5 minutes, I reinspected my operative field. The overlying Surgicel was dry and hemostasis had been achieved. I closely inspected the area of my dissection and no damage to surrounding structures was noted. The 12 mm trocar site was then closed using interrupted 0 Vicryl suture and a Andres-Jeannie device. I then removed the 5 mm trocars under direct visualization and allowed the abdomen to desufflate. The subcutaneous fat layer was closed with interrupted 3-0 Vicryl sutures at the 12 mm port site and the skin was closed with a running 4-0 Monocryl stitch. The 5 mm trocar sites were closed with interrupted 4-0 Monocryl sutures. Steri- Strips and sterile dressings were applied. All counts were complete and correct at the end of the case. The patient was extubated and transferred to PACU in stable condition. LEMEASH / MODL /[id number] YFN
--- NOTE | 2019-04-09 18:23 | PCM.SN ---
- Free Text/Narrative Note: A rapid response was called on the patient around 17:30. Patient stated that she felt dizzy and that her arm was numb. A manual BP was in the 80s/40s with a HR of 115. Another 1 L fluid bolus was given. Her heart rate came down to the low 70s. She is still lethargic, but answers questions appropriately and was oriented x 3. A second stat H/H was drawn. This was unchanged. Given the hypotension the decision was made to transfer her to the ICU for cardiac and respitatory monitoring overnight. Her abdomen was tender along the lower midline , but no rebound or guarding. She states that her abdomen feels slightly better , not worse. She has not recieved any pain medications since PACU. Neuro: monitor closely overnight. Patient is weak but has no neurologic deficits on gross exam. Likely had paresthesias due to low BP. CV: MAPs are >60. HR is within normal range. H/H is stable. Could be bacteremic and having a systemic inflammatory response to this. Pulm: 99% on 2L NC. RR normal GI: clears only tonight if patient feeling better. Renal: No UOP since surgery. Plan to monitor for next 3 hours. If no UOP by 9 will do bladder scan. BUN/Cr WNL and LFTS low to normal. ID: Will restart IV zosyn. Recheck CBC in am Heme: Check H and H q 6 hours. Next draw at 12 SCDs and no need for GI px at this time. Lisette Glasgow
[2019-04-09] MEDS: Acetaminophen/HYDROcodone 325-5 MG Tab PO PRN (19:25)
--- NOTE | 2019-04-09 22:29 | PCM.SN ---
- Free Text/Narrative Note: Rapid response called again on patient. She had been doing well. She was more alert, was up visiting with friends. She tolerated a clear liquid diet. She was having incisional pain and was given 2 tabs of [place]. She felt like urinating. She was up to the commode and attempting to urinate when her "eyes rolled back in her head". Her vitals were stable other than becoming tachypneic. She was placed back in bed and was arousable. Her vitals are still stable. She feels weak. On physical exam her abdomen is flat soft and nontender. Her SBP is better than it was before at 118. HR is normal. Will recheck hgb at midnight and cbc in am. Best rest for the rest of the night. Likely this was a vagal response to micturition.
[2019-04-10] MEDS: Piperacillin/Tazobactam 3.375 GM in Sodium Chloride 0.9% 50 ML IV SCH ×5 (00:04→23:24)
[2019-04-10] MEDS: Lactated Ringers 1,000 ML IV SCH ×3 (04:17→20:00)
[2019-04-10] MEDS: Acetaminophen/HYDROcodone 325-5 MG Tab PO PRN ×3 (06:07→20:02)
[2019-04-10 06:44] LABS: BLOOD UREA NITROGEN,BUN 6 mg/dL (7.0-18.0); CARBON DIOXIDE,CO2 25.4 mmol/L (21.0-32.0); CHLORIDE,CL 107 mmol/L (98-107); GLUCOSE RANDOM 84 mg/dL (74-106); POTASSIUM,K 3.7 mmol/L (3.5-5.1); SODIUM,NA 140 mmol/L (136-145)
--- NOTE | 2019-04-10 07:39 | PCM.SURGPN ---
- General Info Date of Service: 04/10/19 Date of Surgery/Procedure: 04/09/19 POD#: 1 Functional Status: Reports: Other (Patient had no further syncopal episodes overnight. She was strict bedrest. Vital signs remained stable overnight. Midnight hemoglobin was 7.7. Patient given 1 unit of pRBC. Subjectively she felt better after recieving this. Repeat hgb this morning was 8.3. Abdomen tender along lower lower quadrants. C/o right shoulder pain. Patient's blood cultures from admission show e. coli. ) - Review of Systems General: Reports: Weakness HEENT: Reports: No Symptoms Pulmonary: Reports: No Symptoms Cardiovascular: Reports: No Symptoms Gastrointestinal: Reports: Abdominal Pain (lower abdomen) Genitourinary: Reports: No Symptoms Musculoskeletal: Reports: No Symptoms Skin: Reports: No Symptoms - Patient Data Vitals - Most Recent: Last Vital Signs Temp 36.7 C 04/10/19 05:07 Pulse 77 04/10/19 05:07 Resp 22 H 04/10/19 06:00 BP 94/51 L 04/10/19 06:00 Pulse Ox 95 04/10/19 06:00 Weight - Most Recent: 85.842 kg I&O - Last 24 Hours: Intake & Output 04/09/19 04/10/19 04/10/19 22:59 06:59 14:59 Intake Total 4152 2799 Output Total 565 500 Balance 3587 4069 Lab Results Last 24 Hrs: Laboratory Results - last 24 hr 04/09/19 04/09/19 04/09/19 Range/Units 16:33 16:33 16:33 WBC 14.78 H (4.0-11.0) K/uL RBC 3.20 L (4.30-5.90) M/uL Hgb 10.2 L (12.0-16.0) g/dL Hct 29.3 L (36.0-46.0) % MCV 91.6 (80.0-98.0) fL MCH 31.9 (27.0-32.0) pg MCHC 34.8 (31.0-37.0) g/dL RDW Std Deviation 43.7 (28.0-62.0) fl RDW Coeff of Natalie 13 (11.0-15.0) % Plt Count 188 (150-400) K/uL MPV 10.80 (7.40-12.00) fL Add Manual Diff Neutrophils % (Manual) (48.0-80.0) % Lymphocytes % (Manual) (16.0-40.0) % Monocytes % (Manual) (0.0-15.0) % Nucleated RBC % 0.0 /100WBC Absolute Seg Neuts (1.4-5.7) Lymphocytes # (Manual) (0.6-2.4) Monocytes # (Manual) (0.0-0.8) Nucleated RBCs # 0 K/uL Sodium 139 (136-145) mmol/L Potassium 3.7 (3.5-5.1) mmol/L Chloride 107 (98-107) mmol/L Carbon Dioxide 22.1 (21.0-32.0) mmol/L BUN 8 (7.0-18.0) mg/dL Creatinine 0.7 (0.6-1.0) mg/dL Est Cr Clr Drug Dosing 97.17 mL/min Estimated GFR (MDRD) > 60.0 ml/min Glucose 113 H (74-106) mg/dL POC Glucose (60-110) mg/dL Calcium 8.1 L (8.5-10.1) mg/dL Total Bilirubin 0.4 (0.2-1.0) mg/dL AST 9 L (15-37) IU/L ALT 17 (14-63) IU/L Alkaline Phosphatase 12 L (46-116) U/L Total Protein 5.1 L (6.4-8.2) g/dL Albumin 2.7 L (3.4-5.0) g/dL Globulin 2.4 L (2.6-4.0) g/dL Albumin/Globulin Ratio 1.1 (0.9-1.6) Blood Type O POSITIVE Antibody Screen NEGATIVE Crossmatch See Detail 04/09/19 04/09/19 04/09/19 Range/Units 17:33 17:39 22:00 WBC (4.0-11.0) K/uL RBC (4.30-5.90) M/uL Hgb 9.9 L (12.0-16.0) g/dL Hct 28.0 L (36.0-46.0) % MCV (80.0-98.0) fL MCH (27.0-32.0) pg MCHC (31.0-37.0) g/dL RDW Std Deviation (28.0-62.0) fl RDW Coeff of Natalie (11.0-15.0) % Plt Count (150-400) K/uL MPV (7.40-12.00) fL Add Manual Diff Neutrophils % (Manual) (48.0-80.0) % Lymphocytes % (Manual) (16.0-40.0) % Monocytes % (Manual) (0.0-15.0) % Nucleated RBC % /100WBC Absolute Seg Neuts (1.4-5.7) Lymphocytes # (Manual) (0.6-2.4) Monocytes # (Manual) (0.0-0.8) Nucleated RBCs # K/uL Sodium (136-145) mmol/L Potassium (3.5-5.1) mmol/L Chloride (98-107) mmol/L Carbon Dioxide (21.0-32.0) mmol/L BUN (7.0-18.0) mg/dL Creatinine (0.6-1.0) mg/dL Est Cr Clr Drug Dosing mL/min Estimated GFR (MDRD) ml/min Glucose (74-106) mg/dL POC Glucose 120 H 164 H (60-110) mg/dL Calcium (8.5-10.1) mg/dL Total Bilirubin (0.2-1.0) mg/dL AST (15-37) IU/L ALT (14-63) IU/L Alkaline Phosphatase (46-116) U/L Total Protein (6.4-8.2) g/dL Albumin (3.4-5.0) g/dL Globulin (2.6-4.0) g/dL Albumin/Globulin Ratio (0.9-1.6) Blood Type Antibody Screen Crossmatch 04/10/19 04/10/19 04/10/19 Range/Units 00:15 06:00 06:00 WBC 13.08 H (4.0-11.0) K/uL RBC 2.67 L (4.30-5.90) M/uL Hgb 7.7 L 8.3 L (12.0-16.0) g/dL Hct 24.0 L (36.0-46.0) % MCV 89.9 (80.0-98.0) fL MCH 31.1 (27.0-32.0) pg MCHC 34.6 (31.0-37.0) g/dL RDW Std Deviation 44.5 (28.0-62.0) fl RDW Coeff of Natalie 14 (11.0-15.0) % Plt Count 165 (150-400) K/uL MPV 11.10 (7.40-12.00) fL Add Manual Diff YES Neutrophils % (Manual) 67 (48.0-80.0) % Lymphocytes % (Manual) 29 (16.0-40.0) % Monocytes % (Manual) 4 (0.0-15.0) % Nucleated RBC % 0.0 /100WBC Absolute Seg Neuts 8.8 H (1.4-5.7) Lymphocytes # (Manual) 3.8 H (0.6-2.4) Monocytes # (Manual) 0.5 (0.0-0.8) Nucleated RBCs # 0 K/uL Sodium 140 (136-145) mmol/L Potassium 3.7 (3.5-5.1) mmol/L Chloride 107 (98-107) mmol/L Carbon Dioxide 25.4 (21.0-32.0) mmol/L BUN 6 L (7.0-18.0) mg/dL Creatinine 0.6 (0.6-1.0) mg/dL Est Cr Clr Drug Dosing 113.36 mL/min Estimated GFR (MDRD) > 60.0 ml/min Glucose 84 (74-106) mg/dL POC Glucose (60-110) mg/dL Calcium 7.9 L (8.5-10.1) mg/dL Total Bilirubin (0.2-1.0) mg/dL AST (15-37) IU/L ALT (14-63) IU/L Alkaline Phosphatase (46-116) U/L Total Protein (6.4-8.2) g/dL Albumin (3.4-5.0) g/dL Globulin (2.6-4.0) g/dL Albumin/Globulin Ratio (0.9-1.6) Blood Type Antibody Screen Crossmatch Brayan Results Last 24 Hrs: Microbiology 04/09/19 04:00 Aerobic Blood Culture - Preliminary Blood - Venous - Lab Draw NO GROWTH AFTER 1 DAY Anaerobic Blood Culture - Preliminary NO GROWTH AFTER 1 DAY 04/09/19 03:50 Aerobic Blood Culture - Preliminary Blood - Venous NO GROWTH AFTER 1 DAY Anaerobic Blood Culture - Preliminary Med Orders - Current: Current Medications Hydrocodone Bitart/Acetaminophen (Sparks 325-5 Mg) 1 tab PO Q6H PRN PRN Reason: Pain (moderate 4-6) Diphenhydramine HCl (Benadryl) 25 mg IVPUSH Q4H PRN PRN Reason: Itching Lactated Ringer's (Ringers, Lactated) 1,000 mls @ 150 mls/hr IV ASDIRECTED SHAYLA Last Admin: 04/10/19 04:17 Dose: 150 mls/hr Sodium Chloride (Normal Saline) 1,000 mls @ 999 mls/hr IV ASDIRECTED SHAYLA Last Admin: 04/09/19 04:12 Dose: 999 mls/hr Lactated Ringer's (Ringers, Lactated) 1,000 mls @ 999 mls/hr IV STAT [facility] Last Admin: 04/09/19 16:20 Dose: 999 mls/hr Piperacillin Sod/Tazobactam (Sod 3.375 gm/ Sodium Chloride) 50 mls @ 100 mls/ hr IV Q6H SHAYLA Last Admin: 04/10/19 06:47 Dose: 100 mls/hr Ondansetron HCl (Zofran) 4 mg IVPUSH Q6H PRN PRN Reason: Nausea/Vomiting Last Admin: 04/09/19 13:30 Dose: 4 mg Promethazine HCl (Phenergan) 12.5 mg IM Q6H PRN PRN Reason: Nausea Sodium Chloride (Saline Flush) 10 ml FLUSH ASDIRECTED PRN PRN Reason: Keep Vein Open Sodium Chloride (Saline Flush) 2.5 ml FLUSH ASDIRECTED PRN PRN Reason: Keep Vein Open Sodium Chloride (Normal Saline) 10 ml IV ASDIRECTED PRN PRN Reason: IV Use Discontinued Medications Hydrocodone Bitart/Acetaminophen (Sparks 325-5 Mg) 2 tab PO Q4H PRN PRN Reason: Pain (moderate 4-6) Last Admin: 04/10/19 06:07 Dose: 2 tab Bupivacaine HCl (Sensorcaine-Mpf 0.5%) Confirm Administered Dose 10 ml .ROUTE .STK-MED ONE Stop: 04/09/19 12:07 Fentanyl (Sublimaze) 50 mcg IVPUSH Q5M PRN PRN Reason: Pain Last Admin: 04/09/19 15:41 Dose: 50 mcg Fentanyl (Sublimaze) Confirm Administered Dose 250 mcg .ROUTE .STK-MED ONE Stop: 04/09/19 09:51 Fentanyl (Sublimaze) Confirm Administered Dose 100 mcg .ROUTE .STK-MED ONE Stop: 04/09/19 12:35 Glycopyrrolate (Robinul) Confirm Administered Dose 0.2 mg .ROUTE .STK-MED ONE Stop: 04/09/19 09:55 Hydromorphone HCl (Dilaudid) 0.5 mg IVPUSH Q1H PRN PRN Reason: Pain (severe 7-10) Last Admin: 04/09/19 21:17 Dose: 0.5 mg Piperacillin Sod/Tazobactam (Sod 3.375 gm/ Sodium Chloride) 50 mls @ 100 mls/ hr IV ONETIME ONE Stop: 04/09/19 04:15 Last Admin: 04/09/19 04:14 Dose: 100 mls/hr Piperacillin Sod/Tazobactam (Sod 3.375 gm/ Sodium Chloride) 50 mls @ 100 mls/ hr IV Q6H SHAYLA Last Admin: 04/09/19 11:44 Dose: 100 mls/hr Lactated Ringer's (Ringers, Lactated) 1,000 mls @ 1,000 mls/min IV .BOLUS ONE Stop: 04/09/19 17:57 Last Admin: 04/09/19 18:51 Dose: 1,000 mls/min Iopamidol (Isovue-370 (76%)) 100 ml IVPUSH ONETIME ONE Stop: 04/09/19 02:22 Last Admin: 04/09/19 02:22 Dose: 100 ml Ketorolac Tromethamine (Toradol) Confirm Administered Dose 30 mg .ROUTE .STK- MED ONE Stop: 04/09/19 09:55 Lidocaine (Xylocaine-Mpf 2%) Confirm Administered Dose 5 ml .ROUTE .STK-MED ONE Stop: 04/09/19 09:55 Midazolam HCl (Versed 1 Mg/Ml) Confirm Administered Dose 2 mg .ROUTE .STK-MED ONE Stop: 04/09/19 09:51 Morphine Sulfate (Morphine) 4 mg IVPUSH ONETIME ONE Stop: 04/09/19 01:44 Last Admin: 04/09/19 01:58 Dose: 4 mg Nicotine (Habitrol) 14 mg TRDERM ONETIME ONE Stop: 04/09/19 03:58 Last Admin: 04/09/19 04:19 Dose: 14 mg Ondansetron HCl (Zofran) 4 mg IVPUSH ONETIME ONE Stop: 04/08/19 23:09 Last Admin: 04/08/19 23:33 Dose: 4 mg Ondansetron HCl (Zofran) Confirm Administered Dose 4 mg .ROUTE .STK-MED ONE Stop: 04/09/19 09:55 Phenylephrine HCl (Phenylephrine In Ns 100 Mcg/Ml) Confirm Administered Dose 1 mg .ROUTE .STK-MED ONE Stop: 04/09/19 11:13 Propofol (Diprivan 20 Ml) Confirm Administered Dose 200 mg .ROUTE .STK-MED ONE Stop: 04/09/19 09:51 Rocuronium Gardiner (Zemuron) Confirm Administered Dose 100 mg .ROUTE .STK-MED ONE Stop: 04/09/19 09:55 Sugammadex Sodium (Bridion) Confirm Administered Dose 200 mg .ROUTE .STK-MED ONE Stop: 04/09/19 08:28 - Exam Wound/Incisions: Drainage (scant bloody drainage on all 3 incision sites. ) General: Alert, Oriented, Cooperative, Lethargic HEENT: Pupils Equal, Pupils Reactive Lungs: Clear to Auscultation, Normal Respiratory Effort Cardiovascular: Regular Rate, Regular Rhythm GI/Abdominal Exam: Soft, Distended (mild-moderate distension ), Tender (lower abdomen ), Other (hypoactive bowel sounds throughout). No: Guarding, Rebound Extremities: Normal Inspection, Normal Range of Motion Skin: Warm, Dry, Intact Sepsis Event Note - Evaluation Sepsis Screening Result: No Definite Risk - Focused Exam Vital Signs: Vital Signs Temp Temp Pulse Resp BP BP Pulse Ox 04/10/19 06:00 22 H 94/51 L 95 04/10/19 05:07 36.7 C 77 20 102/58 L 96 04/10/19 05:00 20 102/58 L 96 04/10/19 04:07 36.6 C 75 19 96/56 L 97 04/10/19 04:00 36.6 C 19 101/58 L 97 04/10/19 03:00 19 94/54 L 96 04/10/19 02:00 11 L 104/63 99 04/10/19 01:48 36.8 C 66 20 104/63 100 04/10/19 01:33 36.8 C 80 18 131/59 L 100 04/10/19 01:00 17 120/65 100 04/10/19 00:00 36.6 C 17 126/56 L 100 04/09/19 23:00 18 120/62 100 04/09/19 22:00 19 118/65 100 04/09/19 21:00 18 94/52 L 100 04/09/19 20:00 36.6 C 22 H 81/57 L 100 Date Exam was Performed: 04/10/19 Time Exam was Performed: 07:33 - Problem List & Annotations (1) Appendicitis SNOMED Code(s): 43377048 Code(s): K37 - UNSPECIFIED APPENDICITIS Status: Acute Current Visit: Yes (2) Postoperative anemia due to acute blood loss SNOMED Code(s): 17024166604977341 Code(s): D62 - ACUTE POSTHEMORRHAGIC ANEMIA Status: Acute Current Visit: Yes (3) Positive blood culture SNOMED Code(s): 099618702 Code(s): R78.81 - BACTEREMIA Status: Acute Current Visit: Yes (4) Orthostatic hypotension SNOMED Code(s): 46694516 Code(s): I95.1 - ORTHOSTATIC HYPOTENSION Status: Acute Current Visit: Yes - Problem List Review Problem List Initiated/Reviewed/Updated: Yes - My Orders Last 24 Hours: Active Orders 24 hr Category Date Time Status Patient Status [ADT] Routine ADT 04/09/19 16:29 Active Transfer Patient (Change bed) [ADT] Routine ADT 04/09/19 17:39 Ordered Communication Order [RC] STAT Care 04/09/19 17:05 Active Overnight Pulse Oximetry [RC] Click to Edit Care 04/09/19 18:23 Active Oxygen Therapy [RC] PRN Care 04/09/19 15:15 Active Vital Signs [RC] Q1H Care 04/09/19 15:15 Active Clear Liquid Diet [DIET] Diet 04/10/19 Breakfast Active BASIC METABOLIC PANEL,BMP [CHEM] AM Lab 04/11/19 05:11 Ordered CBC W/O DIFF,HEMOGRAM [HEME] AM Lab 04/12/19 05:11 Ordered HEMOGLOBIN/HEMATOCRIT,HH [HEME] Timed Lab 04/10/19 12:00 Ordered HEMOGLOBIN/HEMATOCRIT,HH [HEME] Timed Lab 04/10/19 18:00 Ordered HEMOGLOBIN/HEMATOCRIT,HH [HEME] Timed Lab 04/11/19 00:00 Ordered HEMOGLOBIN/HEMATOCRIT,HH [HEME] Timed Lab 04/11/19 12:00 Ordered RED BLOOD CELLS LP [BBK] Routine Lab 04/10/19 01:06 Results TYPE AND SCREEN [BBK] Stat Lab 04/09/19 16:33 Results Acetaminophen/HYDROcodone [Sparks 325-5 MG] Med 04/10/19 07:21 Ordered 1 tab PO Q6H PRN Lactated Ringers [Ringers, Lactated] 1,000 ml Med 04/09/19 16:30 Active IV STAT Piperacillin/Tazobactam [Piperacil-Tazobact] 3.375 gm Med 04/09/19 18:00 Active Sodium Chloride 0.9% [Normal Saline] 50 ml IV Q6H Promethazine [Phenergan] Med 04/09/19 15:15 Active 12.5 mg IM Q6H PRN Sodium Chloride 0.9% [Normal Saline] Med 04/09/19 15:15 Active 10 ml IV ASDIRECTED PRN Sodium Chloride 0.9% [Saline Flush] Med 04/09/19 15:15 Active 10 ml FLUSH ASDIRECTED PRN Sodium Chloride 0.9% [Saline Flush] Med 04/09/19 15:15 Active 2.5 ml FLUSH ASDIRECTED PRN diphenhydrAMINE [Benadryl] Med 04/09/19 15:15 Active 25 mg IVPUSH Q4H PRN Peripheral IV Insertion Adult [OM.PC] Urgent Oth 04/09/19 15:15 Ordered Pulse Oximetry Continuous Monitoring [OM.PC] Routine Oth 04/09/19 18:23 Ordered Transfuse Red Blood Cells [COMM] Routine Oth 04/10/19 07:14 Ordered Medication Orders Hydrocodone Bitart/Acetaminophen (Sparks 325-5 Mg) 1 tab PO Q6H PRN PRN Reason: Pain (moderate 4-6) Diphenhydramine HCl (Benadryl) 25 mg IVPUSH Q4H PRN PRN Reason: Itching Lactated Ringer's (Ringers, Lactated) 1,000 mls @ 150 mls/hr IV ASDIRECTED [facility] Last Admin: 04/10/19 04:17 Dose: 150 mls/hr Infusion: 04/10/19 01:28 Dose: 150 mls/hr Infusion: 04/09/19 19:28 Dose: 150 mls/hr Admin: 04/09/19 18:40 Dose: 125 mls/hr Infusion: 04/09/19 12:57 Dose: 125 mls/hr Admin: 04/09/19 04:57 Dose: 125 mls/hr Sodium Chloride (Normal Saline) 1,000 mls @ 999 mls/hr IV ASDIRECTED [facility] Last Admin: 04/09/19 04:12 Dose: 999 mls/hr Lactated Ringer's (Ringers, Lactated) 1,000 mls @ 999 mls/hr IV STAT [facility] Last Admin: 04/09/19 16:20 Dose: 999 mls/hr Piperacillin Sod/Tazobactam (Sod 3.375 gm/ Sodium Chloride) 50 mls @ 100 mls/ hr IV Q6H [facility] Last Admin: 04/10/19 06:47 Dose: 100 mls/hr Infusion: 04/10/19 00:34 Dose: 100 mls/hr Admin: 04/10/19 00:04 Dose: 100 mls/hr Infusion: 04/09/19 19:47 Dose: 100 mls/hr Admin: 04/09/19 19:17 Dose: 100 mls/hr Ondansetron HCl (Zofran) 4 mg IVPUSH Q6H PRN PRN Reason: Nausea/Vomiting Last Admin: 04/09/19 13:30 Dose: 4 mg Admin: 04/09/19 09:20 Dose: 4 mg Promethazine HCl (Phenergan) 12.5 mg IM Q6H PRN PRN Reason: Nausea Sodium Chloride (Saline Flush) 10 ml FLUSH ASDIRECTED PRN PRN Reason: Keep Vein Open Sodium Chloride (Saline Flush) 2.5 ml FLUSH ASDIRECTED PRN PRN Reason: Keep Vein Open Sodium Chloride (Normal Saline) 10 ml IV ASDIRECTED PRN PRN Reason: IV Use - Plan Plan (Free Text/Narrative):: Patient likely bled from her appendicial mesentery resulting in orthostatic hypotension from acute blood loss. She is mild-moderately distended, has some right shoulder pain and is tender along the lower abdomen which is likely due to irritation from blood. Her hgb did increase with the administration of the blood product and her vitals are stable. Due to this, I do not think she is having any ongoing bleeding. Will give her one more unit of pRBC and continue q6hr monitoring of her hgb. Pain: Patient seems very sensitive to pain medications. Since these worsen her lethargy, I will d/c IV Dilaudid and decreased dose of Sparks to 1 tab q 6hr. She is currently comfortable. CV: Vitals stable. Continue cardiac monitoring. Pulm: IS use q1hr while awake. On 2 L NC and sats 100%. GI: Clear liquid diet. No advancing diet at this time. Renal: BUN/Cr well within normal range. Had 500 UOP several hours ago. Continue to monitor UOP q4hr. If patient has not had voided by 9am, bladder scan. If > 600ml can place ivey catheter. Continue IVF LR @150ml/hr ID: Continue IV zosyn 3.375mg q 6hr. WBC decreasing. Neutrophil % now within normal limits Heme: Acute blood loss anemia. Will monitor h/h q 6hr. Responding to blood and fluids. STRICT bed rest today. Px: SCDs only.
--- NOTE | 2019-04-10 09:12 | PN ---
THC Physician - Brief Progress [id number]/25/2020 08:50[facility] Jose Queen, LAURIE - CHERYL (CAITY) - CHERYL STEPH GONZALEZMernaDate of Service 04/10/2019 08:50HPI/Even ts of Note eICU admission [id number] F who presented to the hospital with acute appendicitis. She had she has symptoms of abdominal pain along with vomiting. Her labs are significant for leukocytosis of [address] abdomen showing acute nonperforated appendicitis. She was taken to the OR on the night of 04/09 for laparoscopic appendectomy. Postoperatively she did have a hemoglobin drop and was transf used subsequently. She also was found to have 1 out of 2 blood cultures positive for gram-positive c occi and she remains on Zosyn. Patient laying flat in bed, no acute distress, sleeping. Vitals review edLabs/EMR/Imaging reviewedAcute appendicitis - Post op management per primary surgical team- Pain co ntrol and DVT prophy per primary team. - Will recommend GI prophylaxis if patient remains NPOAcute bl ood loss anemia- Likely intra-op blood loss vs component of dilution- Agree with transfusion with goa l Hb 7.0- If continues to downtrend will likely need repeat imaging vs hemolysis workupBacteremia- Cu rrently 1/2 cx positive with gram +ve cocci, Leukocytosis improving. - Per EMR review patient does no t have any pseudomonal risk factors, can place patient on Ertapenem to cover gram +ve, -ve and anerob es- Awiating further speciation.Interventions Major-Sepsis - evaluation and management, Other: Post o p appendicitis, acute blood loss anemia 0 9:11
--- NOTE | 2019-04-10 09:48 | PCM48HPAN ---
Post Anesthesia Note - EVALUATION WITHIN 48HRS OF ANESTHETIC Vital Signs in Normal Range: Yes Patient Participated in Evaluation: Yes Respiratory Function Stable: Yes Airway Patent: Yes Cardiovascular Function Stable: Yes Hydration Status Stable: Yes Pain Control Satisfactory: Yes Nausea and Vomiting Control Satisfactory: Yes Mental Status Recovered: Yes Vital Signs: Last Vital Signs Temp 36.9 C 04/10/19 08:28 Pulse 77 04/10/19 05:07 Resp 18 04/10/19 09:00 BP 102/61 04/10/19 09:00 Pulse Ox 97 04/10/19 09:00 - COMMENTS/OBSERVATIONS Free Text/Narrative:: Patient was transferred to ICU yesterday from the floor related to hypotension, decreased level of consciousness, and acute post-op blood loss. Today patient has been stable. Dr. Alba has been to see the patient and patient is receiving blood. Currently she is resting in bed, vital signs are stable. No anesthesia related questions, concerns or complications noted.
--- NOTE | 2019-04-10 14:18 | PCM.SN ---
- Free Text/Narrative Note: making round on pt; apin 5 on pain scale, no nausea/vomitting, on clear liquid diet; 1000 cc uop /6 hrs; no tachy/hypotensive episode noted; friends/fam members in room; h/h after 2 RBC, 7.7 > 8.3 > 9.3; will recheck another one by 6 pm; on exam, abd soft, no ecchymosis, tenderness only around incisions; continue present managment
--- NOTE | 2019-04-10 21:34 | PCM.SN ---
- Free Text/Narrative Note: pt comfortable; avss, no tachy/hypotension episode; adequate urine output, repeat h/h at 6p 9.2; continue present management
[2019-04-11] MEDS: Acetaminophen/HYDROcodone 325-5 MG Tab PO PRN ×3 (05:07→23:22)
[2019-04-11] MEDS: Piperacillin/Tazobactam 3.375 GM in Sodium Chloride 0.9% 50 ML IV SCH ×2 (06:23→12:16)
[2019-04-11] MEDS: Lactated Ringers 1,000 ML IV SCH (06:23)
[2019-04-11 06:35] LABS: BLOOD UREA NITROGEN,BUN 3 mg/dL (7.0-18.0); CARBON DIOXIDE,CO2 22.1 mmol/L (21.0-32.0); CHLORIDE,CL 105 mmol/L (98-107); GLUCOSE RANDOM 71 mg/dL (74-106); POTASSIUM,K 3.6 mmol/L (3.5-5.1); SODIUM,NA 139 mmol/L (136-145)
--- NOTE | 2019-04-11 08:56 | PN ---
THC Physician - Brief Progress [id number]/26/2020 08:45[facility] Jose Queen, LAURIE - CHERYL (CAITY) - STEPH BYRDDate of Service 04/11/2019 08:45HPI/Even ts of Note eICU admission [id number] F who presented to the hospital with acute appendicitis s/p laparo scopic appendectomy on 04/09 overnight. Per EMR Review, patient doing well overnight and currently ab le to tolerate PO liquid diet and pain meds. Patient laying flat in bed, no acute distress, sleeping. Family at bedside. Vitals reviewedLabs/EMR/Imaging reviewedAcute appendicitis- Post op management pe r primary surgical team- Pain control, bowel regimen and DVT prophy per primary team. - On clear liqu id diet- GI prophy not indicatedAcute blood loss anemia- Likely intra-op blood loss vs component of d ilution- Agree with transfusion with goal Hb 7.0 - currently Hb stable at 9- For an acute drop will l ikely need repeat imaging vs hemolysis workupBacteremia- Currently 1/2 cx positive with gram +ve cocc i, Leukocytosis improving.- Per EMR review patient does not have any pseudomonal risk factors and cur rently on Zosyn; recommend to place patient onErtapenem to cover gram +ve/-ve/anerobes.Interventions Major-Infection - evaluation and management, Other: Acute appendicitis- post op
[2019-04-11] MEDS ORDERED: Sodium Chloride 0.9% 2.5 ML Syringe FLUSH PRN (13:28)
[2019-04-11] MEDS ORDERED: Sodium Chloride 0.9% 10 ML Syringe FLUSH PRN (13:28)
[2019-04-11] MEDS ORDERED: Ertapenem 1 GM Vial IM SCH (16:45)
[2019-04-11] MEDS ORDERED: Ertapenem 1 GM in Lidocaine 1% 3.2 ML IM SCH (17:00)
--- NOTE | 2019-04-12 08:37 | PCM.DCSUM1 ---
Discharge Summary - Hospital Course Free Text/Narrative:: Patient is a 24 year old female who presented with RLQ abdominal pain. Work up in the ER including CT scan revealed acute appendicitis. The patient was taken to the OR for a laparoscopic appendectomy. There was some bleeding from the appendical mesentery during the case. This was controlled with Surgicel. In the post operative period the patient had 3 syncopal episodes associated with hypotension (see my previous notes for further detail). She responded to fluid boluses. Initially her hemoglobin was stable, but during her 3rd H/H she was found to have an acute drop from 10.3->9.9->7.7. She was admitted to the ICU for close monitoring and give one unit of blood. Her h/h after the pRBC was 8.3. She was given one more unit of pRBC. She felt much better after this. Her vitals remained stable but she was kept bed rest for 24 hours. The next day her hemoglobin was stable. Her diet was advanced to regular. She was allowed to ambulate as tolerated. She made good UOP and her BUN/Cr was stable. Her vitals and labs remained stable. Her pre-op blood cultures grew E. coli. Because of this she was kept on antibiotics during her stay then transitioned over to oral antibiotics. The next day she was passing gas and feeling well. She was discharged home. - Discharge Data Discharge Date: 04/13/19 Discharge Disposition: Home, Self-Care 01 Condition: Fair - Referral to Home Health Primary Care Physician: PCP None - Discharge Diagnosis/Problem(s) (1) Appendicitis SNOMED Code(s): 20984376 ICD Code: K37 - UNSPECIFIED APPENDICITIS Status: Acute (2) Postoperative anemia due to acute blood loss SNOMED Code(s): 77481167378399390 ICD Code: D62 - ACUTE POSTHEMORRHAGIC ANEMIA Status: Acute (3) Positive blood culture SNOMED Code(s): 002591404 ICD Code: R78.81 - BACTEREMIA Status: Acute (4) Orthostatic hypotension SNOMED Code(s): 37007534 ICD Code: I95.1 - ORTHOSTATIC HYPOTENSION Status: Acute - Patient Summary/Data Operative Procedure(s) Performed: Laparoscopic appendectomy - Patient Instructions Diet: Regular Diet as Tolerated Activity: No Lifting Over 20 Pounds (for 4 weeks ), Rest and Relax Today Driving: Do Not Drive (for one week ) Showering/Bathing: May Shower, No Tub Bathing/Swimming (for 2 weeks ) Wound/Incision Care: Keep Operative Site/Wound Site Clean and Dry Notify Provider of: Fever, Increased Pain, Swelling and Redness, Drainage, Nausea and/or Vomiting Other/Special Instructions: No work for 2 weeks - Discharge Plan *PRESCRIPTION DRUG MONITORING PROGRAM REVIEWED*: Not Applicable *COPY OF PRESCRIPTION DRUG MONITORING REPORT IN PATIENT PRABHA: Not Applicable Prescriptions/Med Rec: bisacodyL [Dulcolax] 5 mg PO DAILY #14 tablet Ciprofloxacin HCl [Cipro] 500 mg PO BID #4 tablet metroNIDAZOLE [Flagyl] 250 mg PO QID #8 tablet Home Medications: Home Meds Ciprofloxacin HCl [Cipro] 500 mg PO BID #4 tablet 04/12/19 [Rx] bisacodyL [Dulcolax] 5 mg PO DAILY #14 tablet 04/12/19 [Rx] metroNIDAZOLE [Flagyl] 250 mg PO QID #8 tablet 04/12/19 [Rx] Patient Handouts: Acetaminophen; Hydrocodone tablets or capsules, Laparoscopic Appendectomy, Adult, Care After, [id number] Referrals: Lisette Alba MD [Physician] - 04/23/19 9:00 am - Discharge Summary/Plan Comment DC Time >30 min.: No - General Info Date of Service: 04/12/19 Functional Status: Reports: Pain Controlled, Tolerating Diet, Ambulating, Urinating, Incentive Spirometry - Review of Systems General: Reports: No Symptoms HEENT: Reports: No Symptoms Pulmonary: Reports: No Symptoms Cardiovascular: Reports: No Symptoms Gastrointestinal: Reports: Flatus. Denies: Abdominal Pain Musculoskeletal: Reports: No Symptoms Skin: Reports: No Symptoms - Patient Data Vitals - Most Recent: Last Vital Signs Temp 36.8 C 04/12/19 04:00 Pulse 77 04/10/19 05:07 Resp 18 04/12/19 04:00 BP 114/57 L 04/12/19 04:00 Pulse Ox 93 L 04/12/19 04:00 Weight - Most Recent: 80.059 kg I&O - Last 24 hours: Intake & Output 04/11/19 04/12/19 04/12/19 22:59 06:59 14:59 Intake Total 1200 700 Output Total 3000 900 Balance -1800 -200 Lab Results - Last 24 hrs: Laboratory Results - last 24 hr 04/11/19 04/11/19 04/12/19 Range/Units 06:15 12:13 06:00 WBC 9.47 (4.0-11.0) K/uL RBC 3.11 L (4.30-5.90) M/uL Hgb 9.0 L 9.8 L 9.4 L (12.0-16.0) g/dL Hct 25.8 L 27.9 L 27.3 L (36.0-46.0) % MCV 87.8 (80.0-98.0) fL MCH 30.2 (27.0-32.0) pg MCHC 34.4 (31.0-37.0) g/dL RDW Std Deviation 45.4 (28.0-62.0) fl RDW Coeff of Natalie 14 (11.0-15.0) % Plt Count 196 (150-400) K/uL MPV 10.40 (7.40-12.00) fL Nucleated RBC % 0.0 /100WBC Nucleated RBCs # 0 K/uL THONG Results - Last 24 hrs: Microbiology 04/09/19 04:00 Aerobic Blood Culture - Preliminary Blood - Venous - Lab Draw NO GROWTH AFTER 3 DAYS Anaerobic Blood Culture - Preliminary NO GROWTH AFTER 3 DAYS 04/09/19 03:50 Aerobic Blood Culture - Preliminary Blood - Venous NO GROWTH AFTER 3 DAYS Anaerobic Blood Culture - Preliminary Med Orders - Current: Current Medications Hydrocodone Bitart/Acetaminophen ([place] 325-5 Mg) 1 tab PO Q6H PRN PRN Reason: Pain (moderate 4-6) Last Admin: 04/11/19 23:22 Dose: 1 tab Bisacodyl (Dulcolax) 5 mg PO DAILY SHAYLA Diphenhydramine HCl (Benadryl) 25 mg IVPUSH Q4H PRN PRN Reason: Itching Sodium Chloride (Normal Saline) 1,000 mls @ 999 mls/hr IV ASDIRECTED SHAYLA Last Admin: 04/09/19 04:12 Dose: 999 mls/hr Lactated Ringer's (Ringers, Lactated) 1,000 mls @ 999 mls/hr IV STAT SHAYLA Last Admin: 04/09/19 16:20 Dose: 999 mls/hr Ertapenem 1 gm/ Lidocaine HCl 3.2 mls @ 11,520 mls/hr IM Q24H SHAYLA Last Admin: 04/11/19 17:11 Dose: 11,520 mls/hr Ondansetron HCl (Zofran) 4 mg IVPUSH Q6H PRN PRN Reason: Nausea/Vomiting Last Admin: 04/09/19 13:30 Dose: 4 mg Promethazine HCl (Phenergan) 12.5 mg IM Q6H PRN PRN Reason: Nausea Sodium Chloride (Saline Flush) 10 ml FLUSH ASDIRECTED PRN PRN Reason: Keep Vein Open Sodium Chloride (Saline Flush) 2.5 ml FLUSH ASDIRECTED PRN PRN Reason: Keep Vein Open Sodium Chloride (Normal Saline) 10 ml IV ASDIRECTED PRN PRN Reason: IV Use Sodium Chloride (Saline Flush) 10 ml FLUSH ASDIRECTED PRN PRN Reason: Keep Vein Open Sodium Chloride (Saline Flush) 2.5 ml FLUSH ASDIRECTED PRN PRN Reason: Keep Vein Open Discontinued Medications Hydrocodone Bitart/Acetaminophen ([place] 325-5 Mg) 2 tab PO Q4H PRN PRN Reason: Pain (moderate 4-6) Last Admin: 04/10/19 06:07 Dose: 2 tab Bupivacaine HCl (Sensorcaine-Mpf 0.5%) Confirm Administered Dose 10 ml .ROUTE .STK-MED ONE Stop: 04/09/19 12:07 Fentanyl (Sublimaze) 50 mcg IVPUSH Q5M PRN PRN Reason: Pain Last Admin: 04/09/19 15:41 Dose: 50 mcg Fentanyl (Sublimaze) Confirm Administered Dose 250 mcg .ROUTE .STK-MED ONE Stop: 04/09/19 09:51 Fentanyl (Sublimaze) Confirm Administered Dose 100 mcg .ROUTE .STK-MED ONE Stop: 04/09/19 12:35 Glycopyrrolate (Robinul) Confirm Administered Dose 0.2 mg .ROUTE .STK-MED ONE Stop: 04/09/19 09:55 Hydromorphone HCl (Dilaudid) 0.5 mg IVPUSH Q1H PRN PRN Reason: Pain (severe 7-10) Last Admin: 04/09/19 21:17 Dose: 0.5 mg Piperacillin Sod/Tazobactam (Sod 3.375 gm/ Sodium Chloride) 50 mls @ 100 mls/ hr IV ONETIME ONE Stop: 04/09/19 04:15 Last Admin: 04/09/19 04:14 Dose: 100 mls/hr Lactated Ringer's (Ringers, Lactated) 1,000 mls @ 150 mls/hr IV ASDIRECTED [facility] Last Infusion: 04/10/19 12:55 Dose: 100 mls/hr Piperacillin Sod/Tazobactam (Sod 3.375 gm/ Sodium Chloride) 50 mls @ 100 mls/ hr IV Q6H [facility] Last Admin: 04/09/19 11:44 Dose: 100 mls/hr Lactated Ringer's (Ringers, Lactated) 1,000 mls @ 1,000 mls/min IV .BOLUS ONE Stop: 04/09/19 17:57 Last Admin: 04/09/19 18:51 Dose: 1,000 mls/min Piperacillin Sod/Tazobactam (Sod 3.375 gm/ Sodium Chloride) 50 mls @ 100 mls/ hr IV Q6H [facility] Last Admin: 04/11/19 12:16 Dose: 100 mls/hr Lactated Ringer's (Ringers, Lactated) 1,000 mls @ 100 mls/hr IV ASDIRECTED [facility] Last Admin: 04/11/19 06:23 Dose: 100 mls/hr Iopamidol (Isovue-370 (76%)) 100 ml IVPUSH ONETIME ONE Stop: 04/09/19 02:22 Last Admin: 04/09/19 02:22 Dose: 100 ml Ketorolac Tromethamine (Toradol) Confirm Administered Dose 30 mg .ROUTE .STK- MED ONE Stop: 04/09/19 09:55 Lidocaine (Xylocaine-Mpf 2%) Confirm Administered Dose 5 ml .ROUTE .STK-MED ONE Stop: 04/09/19 09:55 Midazolam HCl (Versed 1 Mg/Ml) Confirm Administered Dose 2 mg .ROUTE .STK-MED ONE Stop: 04/09/19 09:51 Morphine Sulfate (Morphine) 4 mg IVPUSH ONETIME ONE Stop: 04/09/19 01:44 Last Admin: 04/09/19 01:58 Dose: 4 mg Nicotine (Habitrol) 14 mg TRDERM ONETIME ONE Stop: 04/09/19 03:58 Last Admin: 04/09/19 04:19 Dose: 14 mg Ondansetron HCl (Zofran) 4 mg IVPUSH ONETIME ONE Stop: 04/08/19 23:09 Last Admin: 04/08/19 23:33 Dose: 4 mg Ondansetron HCl (Zofran) Confirm Administered Dose 4 mg .ROUTE .STK-MED ONE Stop: 04/09/19 09:55 Phenylephrine HCl (Phenylephrine In Ns 100 Mcg/Ml) Confirm Administered Dose 1 mg .ROUTE .STK-MED ONE Stop: 04/09/19 11:13 Propofol (Diprivan 20 Ml) Confirm Administered Dose 200 mg .ROUTE .STK-MED ONE Stop: 04/09/19 09:51 Rocuronium [place] (Zemuron) Confirm Administered Dose 100 mg .ROUTE .STK-MED ONE Stop: 04/09/19 09:55 Sugammadex Sodium ([place]) Confirm Administered Dose 200 mg .ROUTE .STK-MED ONE Stop: 04/09/19 08:28 - Exam General: Reports: Alert, Oriented HEENT: Reports: Pupils Equal, Pupils Reactive Lungs: Reports: Clear to Auscultation, Normal Respiratory Effort Cardiovascular: Reports: Regular Rate, Regular Rhythm GI/Abdominal Exam: Soft, Non-Tender, No Distention, No Mass Back Exam: Reports: Normal Inspection, Full Range of Motion Extremities: Normal Inspection Skin: Reports: Warm, Dry, Intact Wound/Incisions: Reports: Healing Well, No Drainage
[2019-04-12] MEDS ORDERED: Bisacodyl 5 MG Tab PO SCH (09:00)
--- NOTE | 2019-04-12 09:15 | PN ---
THC Physician - Brief Progress [id number]/27/2020 09:09[facility] Jose Queen, LAURIE - CHERYL (CAITY) - STEPH BYRDDate of Service 04/12/2019 09:09HPI/Even ts of Note eICU Progress [id number] who presented to the hospital with acute appendicitis s/p laparos copic appendectomy on 04/09 overnight. Per EMR Review, patient doing well overnight and currently able to tolerate PO liquid diet and pain meds. Patient laying flat in bed, no acute distress, sleeping. Family at bedside. Vitals reviewed, labs/EMR/Imaging reviewed. She will be discharging today. Plea se call with any questions or concerns.Interventions Intermediate-Communication with other healthcare providers and/or family
[2019-04-12] MEDS: Acetaminophen/HYDROcodone 325-5 MG Tab PO PRN (10:00)
== END 2019-04-12 10:05 | disposition home or self-care (01) ==
LOC: MW.ED 22:31 → MW.SDS 04-09 04:06 → MW.MS 04-09 04:06 → MW.SDS 04-09 04:11 → MW.MS 04-09 16:29 → MW.ICU 04-09 17:39 → INTOOBSV 04-09 17:39 → OBSVTOIN 04-09 17:39 → MW.MS 04-09 17:40 → MW.ICU 04-09 17:40
PROVIDERS: ADMIT Surgery; ATTEND Surgery
DX: K35.80 Unspecified acute appendicitis (principal); I95.1 Orthostatic hypotension; F17.210 Nicotine dependence, cigarettes, uncomplicated
CPT/HCPCS: 36415; 36430; 44970; 74177; 80048; 80053; 81001; 81025; 82962; 83690; 85014; 85018; 85025; 85027; 86850; 86900; 86901; 86920; 86921; 86922; 87040; 87186; 88304; A9270; J1170; J1335; J1885; J2001; J2250; J2270; J2370; J2405; J2543; J2704; J3010; J3490; J7030; J7050; J7120; P9016; Q9967; 00840; 87077; 99283